=== PATIENT | female | born 1950 | race Caucasian/White ===

== ENCOUNTER 2024-08-23 16:37 | Emergency (ER) | payer MEDICARE, SELFPAY ==
[2024-08-23 16:38] VITALS: BP 197/105
[2024-08-23 17:01] LABS: % Basophils 0.7 % (0-2); % Eosinophils 5.1 % (0-6); % Immature Granulocytes 0.3 % (0-0.5); % Lymphocytes 25.6 % (20.5-51.1); % Monocytes 6.5 % (1.7-9.3); % Neutrophils 61.8 % (42.2-75.2); Absolute Basophils 0.1 10^3/uL (0-0.2); Absolute Eosinophils 0.5 10^3/uL (0-0.7); Absolute Lymphocytes 2.3 10^3/uL (1.2-3.4); Absolute Monocytes 0.6 10^3/uL (0.1-0.6); Absolute Neutrophils 5.6 10^3/uL (1.4-6.5); Hematocrit 40.4 % (37.0-47.0); Hemoglobin 13.2 g/dL (12.0-16.0); Mean Corp Hgb Conc. 32.7 g/dL (33.0-37.0); Mean Corpuscular Hgb 29.1 pg (27.0-31.0); Mean Platelet Volume 8.9 fL (7.4-10.4); Nucleated Red Blood Cells % 0 %; Platelet Count 269 10^3/uL (130-400); Red Blood Cell Count 4.54 10^6/uL (4.20-5.40); Red Cell Dist. Width 12.3 % (11.5-14.5)
[2024-08-23 17:12] LABS: ALT (SGPT) 22 U/L (0-35); AST (SGOT) 23 U/L (14-36); Albumin 3.8 g/dl (3.5-5.0); Alkaline Phosphatase 110 U/L (38-126); Blood Urea Nitrogen 31 mg/dl (7-17); Calcium 9.4 mg/dl (8.4-10.2); Carbon Dioxide 33 mmol/L (22-30); Chloride 101 mmol/L (98-107); Glucose 102 mg/dl (70-99); Lipase 57 U/L (23-300); Potassium 3.9 mmol/L (3.5-5.1); Sodium 136 mmol/L (135-145); Total Bilirubin 0.4 mg/dl (0.2-1.3); Total Protein 6.5 g/dl (6.3-8.2); eGFR > 60.00
--- NOTE | 2024-08-23 19:42 | ED.GENMED ---
History of Present Illness
General
Chief Complaint: Abdominal Symptoms
Time Seen by Provider: 08/23/24 19:32
History of Present Illness
History of Present Illness:
74-year-old female presents to the emergency department for eval ration of left-sided abdominal cramping for the past 2 to 3 days associated with intermittent bloody stool. She has had intermittent diarrhea over that time as well however not always
bloody. Was passing blood clots yesterday but only a small volume of red blood today. Denies any fevers or chills. Symptoms feel comparable to a past history of diverticulitis. No history of intra-abdominal surgery. No recent antibiotics in the
past 3 months.
Past History
Past History
ED Past Medical History: HTN, Psychiatric and Other (Hemorrhoids, diverticulosis, osteoarthritis of the knee, colon polyps, hypertension, diet-controlled diabetes)
ED Past Surgical History: None
Social History
Tobacco: Non-smoker
Alcohol: Occasional
Personal:
Family History
Family History: Other (Pernicious anemia, coronary artery disease)
Review of Systems
Review of Systems
Allergies reviewed?: Yes
All Other Systems: ROS reviewed and negative except as documented in HPI and ROS
Phy Exam
Physical Exam
Physical Exam:
GEN: Well appearing, NAD, WDWN
HEENT: Oral mucosa moist, no scleral icterus
Cardiac: Regular rate and rhythm
Lung: No respiratory distress, no tachypnea
Abdomen: Soft, mild left lower quadrant tenderness, no rigidity or peritoneal signs
MSK: No gross deformity or injuries
Skin: Good color, no pallor or jaundice, no rashes
Neuro: AO x3, moves all extremities freely
Psych: Calm, cooperative
Course
Orders/Labs/Results
Orders:
Orders
08/23/24 16:49
Complete Blood Count/With Diff Urgent
Comprehensive Metabolic Panel Urgent
Lipase Urgent
08/23/24 19:41
Amoxicillin 875 mg/Clav 125 mg [Augmentin 875 mg/125 mg] 1 tablet PO NOW STA
Abnormal Lab Results
08/23/24
16:49
MCHC 32.7 L g/dL
(33.0-37.0)
Carbon Dioxide 33 H mmol/L
(22-30)
BUN 31 H mg/dl
(7-17)
Glucose 102 H mg/dl
(70-99)
08/23/24 16:49
08/23/24 16:49
Vital Signs
Initial and Last Documented VS:
Initial Vital Signs
Temp Pulse Resp BP Pulse Ox
99.5 F 97 16 197/105 100
08/23/24 16:38 08/23/24 16:38 08/23/24 16:38 08/23/24 16:38 08/23/24 16:38
Last Documented Vital Signs
Temp Pulse Resp BP Pulse Ox
99.5 F 97 16 197/105 100
08/23/24 16:38 08/23/24 16:38 08/23/24 16:38 08/23/24 16:38 08/23/24 16:38
MDM/Problems Addressed
MDM/Problems Addressed:
Discussed with patient that this most likely represents diverticulitis versus acute colitis however she does not seem to have a high volume of diarrhea. Her hemoglobin is normal and she is not on antiplatelets or anticoagulants. No systemic
symptoms and no leukocytosis on labs. I did discuss the possibility of imaging with the patient however I do not feel at this time that I will make a discernible difference in management thus we will start the patient on empiric antibiotics and
recommend clear liquids, ED follow-up precautions discussed.
*Critical Care Note
Total Time (30-74mins, 75-104mins- exclusive of procedures): Not Applicable
ED Attending Note
-
Portions of this chart may have been created with voice recognition software.� Occasional wrong word or��sound alike� substitutions may have occurred due to the inherent limitations of voice recognition software.
Discharge Plan
Departure
Patient Disposition: Home (Routine Discharge)
Date of Disposition: 08/23/24
Time of Disposition: 19:42
Patient with high blood pressure during this ER visit?: No
Discharge Problem:
Diverticulitis
Instructions: Diverticulitis - Discharge instructions, Clear Liquid Diet
Prescriptions:
New
amoxicillin-pot clavulanate 875-125 mg tablet
1 tab PO BID Qty: 19 0RF
No Action
multivitamin 1 EACH tablet
1 ea PO DAILY
atorvastatin 10 MG tablet
10 mg PO DAILY
clonazepam 0.5 MG tablet
0.5 mg PO PRN PRN (Reason: Anxiety)
levothyroxine 125 MCG tablet
125 mcg PO DAILY
lisinopril-hydrochlorothiazide 1 EACH tablet
1 ea PO DAILY
albuterol sulfate 1 PUFF HFA aerosol inhaler
1 puff inhalation PRN PRN (Reason: wheezing, sob)
solifenacin 5 MG tablet
10 mg PO DAILY
lisdexamfetamine [Vyvanse] 50 MG capsule
50 mg PO DAILY
glucosamine tee 2KCl-chondroit [Glucosamine Sulf-Chondroitin] 1 EACH capsule
1 cap PO DAILY
venlafaxine 225 MG tablet extended release 24hr
225 mg PO DAILY
levofloxacin 500 MG tablet
500 mg PO DAILY Qty: 10 0RF
metronidazole 500 MG tablet
500 mg PO Q8 Qty: 30 0RF
Interventions
Interventions:
*Risk Screen - Suicide Last Done: 08/23/24 16:38
*General Assessment Last Done: 08/23/24 19:38
*Neglect/Abuse Screening Last Done: 08/23/24 16:38
*ED COVID-19 Vaccine History Last Done: 08/23/24 19:38
[facility] Assessment Last Done: 08/23/24 19:36
Discharge Date and Time
Print Language: QATARI
[2024-08-23] MEDS: AUGMENTIN 875 MG/125 MG 1 TABLET PO (19:47)
== END 2024-08-23 20:42 | disposition home or self-care (01) ==
LOC: EMR 16:37
PROVIDERS: Emergency Medicine; EMERGENCY PHYSICIAN Emergency Medicine; FAMILY PHYSICIAN Family Medicine
DX: K57.33 Diverticulitis of large intestine without perforation or abscess with bleeding (principal)
CPT/HCPCS: 99283; 80053; 83690; 85025

== ENCOUNTER → 2024-12-05 10:08 | Outpatient (REF) | payer OTHER, SELFPAY | LOC: HWWDC 10:08 | PROVIDERS: ATTENDING PHYSICIAN Family Medicine | DX: Z12.31 Encounter for screening mammogram for malignant neoplasm of breast (principal) | CPT/HCPCS: 77063; 77067 ==